=== PATIENT | female | born 1990 | race Caucasian/White ===

== ENCOUNTER 2017-11-24 15:13 | Emergency (ER) | payer OTHER, MEDICAID ==
[~2017-11-24] VITALS: Ht 149.9 cm; Wt 40.4 kg
[2017-11-24 15:54] LABS: *URINE HCG, QUAL NEGATIVE (NEGATIVE)
[2017-11-24 15:58] LABS: BASOPHILS # (AUTO) 0.1 K/uL (0.0-8.0); BASOPHILS % (AUTO) 1.1 % (0.0-2.0); EOSINOPHILS % (AUTO) 0.6 % (0.0-7.0); HEMATOCRIT 37.8 % (31.2-41.9); HEMOGLOBIN 12.6 g/dL (10.9-14.3); LYMPHOCYTES # (AUTO) 2.4 K/uL (20.0-40.0); LYMPHOCYTES % (AUTO) 49.6 % (20.5-51.5); MEAN CORPUSCULAR HEMOGLOBIN 26.6 uug (24.7-32.8); MEAN CORPUSCULAR HGB CONC 33 g/dL (32.3-35.6); MEAN CORPUSCULAR VOLUME 79.6 fL (75.5-95.3); MONOCYTES # (AUTO) 0.5 K/uL (2.0-10.0); MONOCYTES % (AUTO) 10.5 % (0.0-11.0); NEUTROPHILS # (AUTO) 1.8 K/uL (1.8-8.9); NEUTROPHILS % (AUTO) 38.2 % (38.5-71.5); PLATELET COUNT (AUTO) 213 K/uL (179-408); RED BLOOD CELL COUNT(AUTO) 4.74 MIL/uL (3.63-4.92); WHITE BLOOD COUNT (AUTO) 4.8 K/uL (3.8-11.8)
[2017-11-24 16:00] LABS: CREATININE 0.7 mg/dL (0.6-1.3); POTASSIUM 3.7 mmol/L (3.5-5.1)
[2017-11-24 16:12] LABS: BILIRUBIN,DIRECT 0.1 mg/dL (0.0-0.2); BILIRUBIN,TOTAL 0.4 mg/dL (0.2-1.0); TOTAL PROTEIN, SERUM 6.9 g/dL (6.4-8.2)
[2017-11-24] MEDS ORDERED: KETOROLAC TROMETHAMINE 30 MG INJ IM ONE (16:30)
[2017-11-24] MEDS ORDERED: KETOROLAC TROMETHAMINE 30 MG INJ ONE (16:32)
--- NOTE | 2017-11-24 16:35 | NUR ---
PT out of ER for CT.
[2017-11-24 17:18] VITALS: BP 109/77
--- NOTE | 2017-11-24 17:18 | NUR ---
Patient discharged to home in stable conditon. Written and verbal after care instructions given. Patient verbalizes understanding of instructions.
== END 2017-11-24 17:20 | disposition home or self-care (01) ==
LOC: ER 15:16
DX: R56.9 Unspecified convulsions (principal); R10.9 Unspecified abdominal pain; M25.562 Pain in left knee
CPT/HCPCS: 36415; 70450; 84703; 85025; 93005; A4663; J1885

== ENCOUNTER 2021-06-02 17:27 | Emergency (ER) | payer MEDICARE, OTHER ==
[~2021-06-02] VITALS: Ht 149.9 cm; Wt 43.1 kg
[2021-06-02] MEDS ORDERED: IV NORMAL SALINE 1000 ML BAG IV ONE (18:30)
[2021-06-02 18:53] LABS: HEMATOCRIT 41.8 % (31.2-41.9); MEAN CORPUSCULAR HEMOGLOBIN 29.3 uug (24.7-32.8); MEAN CORPUSCULAR VOLUME 85.4 fL (75.5-95.3); PLATELET COUNT (AUTO) 328 K/uL (179-408)
[2021-06-02 18:59] LABS: CREATININE 0.7 mg/dL (0.6-1.3); POTASSIUM 3.3 mmol/L (3.5-5.1)
[2021-06-02 19:04] LABS: BILIRUBIN,DIRECT 0.1 mg/dL (0.0-0.2); BILIRUBIN,TOTAL 0.7 mg/dL (0.2-1.0); TOTAL PROTEIN, SERUM 7.1 g/dL (6.4-8.2)
[2021-06-02 19:04] LABS: *BILIRUBIN,URIN NEGATIVE (NEGATIVE); *BLOOD, URINE NEGATIVE (NEGATIVE); *CLARITY,URINE CLEAR (CLEAR); *COLOR,URINE YELLOW (YELLOW); *KETONES,URINE 1+ (NEGATIVE); *UROBILINOGEN,URINE 0.2 E.U./dl (NORMAL); LEUKOCYTE ESTERASE ,URINE NEGATIVE (NEGATIVE); NITRITE, URINE NEGATIVE (NEGATIVE); PH,URINE 5.5 (5.0-8.0); UGLUCOSE NEGATIVE (NEGATIVE)
[2021-06-02 19:10] LABS: *URINE HCG, QUAL NEGATIVE (NEGATIVE)
[2021-06-02 19:18] LABS: BACTERIA,URINE MODERATE /HPF (NONE SEEN); RBC,URINE 0-3 /HPF (0-3); SQUAMOUS EPITHELIAL CELL,UR NONE SEEN /HPF (NONE SEEN); WBC,URINE 0-3 /HPF (0-3)
[2021-06-02] MEDS: POTASSIUM CHLORIDE 50 ML IV SCH ×2 (20:15→21:01)
[2021-06-02] MEDS ORDERED: POTASSIUM CHLORIDE 50 ML ONE (20:41)
[2021-06-02] MEDS ORDERED: DICYCLOMINE HCL LIQ 10 MG/5 ML UDC ONE (20:59)
[2021-06-02] MEDS ORDERED: KETOROLAC TROMETHAMINE 30 MG INJ IVP ONE (21:00)
[2021-06-02] MEDS ORDERED: DIAZEPAM 10 MG/2 ML DISP.SYRIN IV ONE (21:00)
[2021-06-02] MEDS ORDERED: KETOROLAC TROMETHAMINE 30 MG INJ ONE (21:14)
[2021-06-02] MEDS ORDERED: DIAZEPAM 10 MG/2 ML DISP.SYRIN ONE (21:14)
[2021-06-02] MEDS ORDERED: DICY20TA11 PO (21:21)
[2021-06-02] MEDS: DICYCLOMINE HCL 20 MG/2 ML AMPUL IM SCH ×4 (21:45→21:47)
--- NOTE | 2021-06-02 21:49 | NUR ---
Patient does not wish to proceed with medical care recommended by Dr. Madera. Patient given information related to possible complications, up to and including , which could occur as a result of leaving the hospital at this time. Patient verbalizes understanding of risks involved due to leaving against medical advice. Patient has signed AMA form. pt ambulated with steady gait. denies pain. no sob. no chest pain.
[2021-06-02 21:50] VITALS: BP 121/60
== END 2021-06-02 21:52 | disposition left against medical advice (07) ==
LOC: ER 17:29 → EDBD 17:29 → ER 21:52
DX: R10.9 Unspecified abdominal pain (principal); R52 Pain, unspecified; R56.9 Unspecified convulsions; K51.90 Ulcerative colitis, unspecified, without complications; Z86.59 Personal history of other mental and behavioral disorders
CPT/HCPCS: 36415; 70450; 72125; 74176; 80048; 80076; 81001; 82550; 83690; 84703; 85025; 87086; 93005; 96374; 96375; 99285; J1885; J3360; A4663; C1758; J3480; J7030

== ENCOUNTER 2021-06-25 15:03 | Emergency (ER) | payer MEDICARE, OTHER ==
[~2021-06-25] VITALS: Ht 149.9 cm; Wt 43.1 kg
[~2021-06-25 15:03] MED LIST: DICY20TA11 PO
--- NOTE | 2021-06-25 15:24 | NUR ---
Dr Son at the bedside for MSE.
[2021-06-25] MEDS ORDERED: IV NORMAL SALINE 1000 ML BAG IV ONE (15:30)
[2021-06-25 15:51] LABS: HEMATOCRIT 41.1 % (31.2-41.9); MEAN CORPUSCULAR HEMOGLOBIN 28.7 uug (24.7-32.8); MEAN CORPUSCULAR VOLUME 84.4 fL (75.5-95.3); PLATELET COUNT (AUTO) 358 K/uL (179-408)
--- NOTE | 2021-06-25 15:58 | NUR ---
Pt out of Er for Ct.
[2021-06-25 16:05] LABS: CREATININE 0.7 mg/dL (0.6-1.3); POTASSIUM 4.3 mmol/L (3.5-5.1)
[2021-06-25 16:07] LABS: CREATINE KINASE, TOTAL 58 U/L (26-192)
[2021-06-25] MEDS ORDERED: KETOROLAC TROMETHAMINE 30 MG INJ IVP ONE (16:45)
[2021-06-25] MEDS ORDERED: KETOROLAC TROMETHAMINE 30 MG INJ ONE (16:51)
[2021-06-25] MEDS ORDERED: LORAZEPAM 2 MG/1 ML VIAL ONE (17:11)
[2021-06-25] MEDS ORDERED: LORAZEPAM 2 MG/1 ML VIAL IV ONE (17:30)
--- NOTE | 2021-06-25 17:51 | NUR ---
Pt states feeling better and wishes to be discharged.
[2021-06-25 17:59] LABS: *AMPHETAMINE, URINE POSITIVE (NEGATIVE); *CANNABINOID, URINE POSITIVE (NEGATIVE); *COCCAINE, URINE NEGATIVE (NEGATIVE); *OPIATE, URINE POSITIVE (NEGATIVE); *PHENCYCLIDINE SCREEN,URINE NEGATIVE (NEGATIVE)
--- NOTE | 2021-06-25 18:17 | NUR ---
IV removed. Catheter intact and site benign. Pressure and 4x4 gauze applied to site. No bleeding noted.
[2021-06-25 18:18] VITALS: BP 123/70
--- NOTE | 2021-06-25 18:26 | NUR ---
Patient discharged to home in stable condition. Written and verbal after care instructions given. Patient verbalizes understanding of instructions. Stressed follow up or return to ER for worsening s/s. Pt walked out of ER w/ steady gait.
== END 2021-06-25 18:32 | disposition home or self-care (01) ==
LOC: ER 15:05
DX: F44.9 Dissociative and conversion disorder, unspecified (principal); F19.10 Other psychoactive substance abuse, uncomplicated; Z82.49 Family history of ischemic heart disease and other diseases of the circulatory system; Z90.49 Acquired absence of other specified parts of digestive tract; F20.9 Schizophrenia, unspecified; Z86.69 Personal history of other diseases of the nervous system and sense organs; G89.4 Chronic pain syndrome
CPT/HCPCS: 36415; 70450; 80048; 80307; 82550; 84702; 85025; 85730; 96374; 96375; 99285; J1885; J2060; A4663